=== PATIENT | male | born 2005 | race Caucasian/White ===

== ENCOUNTER 2024-02-25 11:16 | Emergency (ER) | payer OTHER, SELFPAY ==
[2024-02-25] MEDS ORDERED: KETOROLAC 30 MG/ML INJ ONE (13:20)
--- NOTE | 2024-02-25 13:47 | RAD REPORT ---
EXAM: Knee Left 3 View INDICATION: PAIN COMPARISON: None FINDINGS: No acute fracture. No significant knee effusion. No significant focal degenerative changes. Other: n/a IMPRESSION: No evidence of acute osseous abnormality involving the imaged knee.
--- NOTE | 2024-02-25 13:51 | ER ---
Nurse's Notes [facility] Name: Mehrdad Gandhi Age: 18 yrs Sex: Male : 2005 Arrival Date: 02/25/2024 Time: 11:16 Bed IW8 Private MD: Diagnosis: Pain in left knee Presentation: 02/24 11:36 Chief complaint: Patient states: injured left knee 6 mos ago, it got better. Two weeks tm6 ago started to hurt again. Coronavirus screen: Client denies travel out of the [place] in the last 14 days. Ebola Screen: Patient negative for fever greater than or equal to 101.5 degrees Fahrenheit, and additional compatible Ebola Virus Disease symptoms Patient denies exposure to infectious person. Patient denies travel to an Ebola-affected area in the 21 days before illness onset. No symptoms or risks identified at this time. Risk Assessment: Do you want to hurt yourself or someone else? Patient reports no desire to harm self or others. Onset of symptoms was February 11, 2024. 11:36 Method Of Arrival: Wheelchair tm6 11:36 Acuity: JULIAN 4 tm6 11:39 Initial Sepsis Screen: Does the patient meet any 2 criteria? No. Patient's initial tm6 sepsis screen is negative. Does the patient have a suspected source of infection? No. Patient's initial sepsis screen is negative. Triage Assessment: 11:38 General: Appears in no apparent distress. Behavior is calm, cooperative. Pain: tm6 Complains of pain in left knee Pain currently is 9 out of 10 on a pain scale. EENT: No signs and/or symptoms were reported regarding the EENT system. Neuro: Level of Consciousness is awake, alert, obeys commands, Oriented to person, place, time, situation. Cardiovascular: Patient's skin is warm and dry. Respiratory: Airway is patent Respiratory effort is even, unlabored, Respiratory pattern is regular, symmetrical. GI: No signs and/or symptoms were reported involving the gastrointestinal system. Abdomen is round. : No signs and/or symptoms were reported regarding the genitourinary system. Derm: No signs and/or symptoms reported regarding the dermatologic system. Musculoskeletal: Reports pain in left knee since x2 weeks. Pain is 9 out of 10 on a pain scale. Historical: - Allergies: 11:37 No Known Allergies; tm6 - PMHx: 11:37 None; tm6 - PSHx: 11:37 None; tm6 - Immunization history:: Flu vaccine is not up to date. - Infectious Disease History:: Denies. - Social history:: Smoking status: Reported history of juuling and/or vaping. Screenin:33 [facility] ED Fall Risk Assessment (Adult) History of falling in the last 3 months, tm6 including since admission No falls in past 3 months (0 pts) Confusion or Disorientation No (0 pts) Intoxicated or Sedated No (0 pts) Impaired Gait No (0 pts) Mobility Assist Device Used No (0 pt) Altered Elimination No (0 pt) Score/Fall Risk Level 0 - 2 = Low Risk Oriented to surroundings, Maintained a safe environment, Educated pt \T\ family on fall prevention, incl call for assistance when getting out of bed. Abuse screen: Denies threats or abuse. Denies injuries from another. Nutritional screening: No deficits noted. Tuberculosis screening: No symptoms or risk factors identified. Assessment: 13:33 Reassessment: see triage assessment. tm6 Vital Signs: 11:37 Resp 17; Temp 98.7(O); Weight 154.22 kg; Height 5 ft. 8 in. ; Pain 9/10; tm6 11:38 BP 162 / 113; Pulse 79; Pulse Ox 97% on R/A; MAP 128 mmHg; tm6 11:39 Pain 9/10; tm6 14:05 BP 158 / 110; Pulse 80; Resp 17; Temp 98.7; Pulse Ox 98% ; Pain 2/10; tm6 11:37 Body Mass Index 51.70 (154.22 kg, 172.72 cm) - Percentile 99.9 % tm6 11:37 Pain Scale: Adult tm6 11:39 Pain Scale: Adult tm6 14:05 Pain Scale: Adult tm6 ED Course: 11:19 Patient arrived in ED. im 11:20 Dorothy Leigh FNP-C is PHCP. kb 11:20 Isra Carlton MD is Attending Physician. kb 11:37 Triage completed. tm6 11:39 Arm band placed on right wrist. tm6 13:18 Randy Samuel, KANA is Primary Nurse. tm6 13:33 Patient has correct armband on for positive identification. Provided Education on: tm6 crutch training. 13:33 Crutch training done. Willis wrap to left knee. tm6 13:44 Knee Left 3 View XRAY In Process Unspecified. EDMS 14:06 No provider procedures requiring assistance completed. Patient did not have IV access tm6 during this emergency room visit. Administered Medications: 13:33 Drug: Ketorolac IM 30 mg IM once Route: IM; Site: right deltoid; tm6 14:06 Follow up: Response: No adverse reaction; Pain is decreased tm6 Medication: 13:33 VIS not applicable for this client. tm6 Outcome: 13:51 Discharge ordered by MD. wills 14:06 Discharged to home with crutches, with family, tm6 14:06 Condition: stable 14:06 Discharge instructions given to patient, family, Instructed on discharge instructions, follow up and referral plans. medication usage, crutch walking, Demonstrated understanding of instructions, follow-up care, medications, crutch walking, Prescriptions given X 1, 14:07 Patient left the ED. tm6 Signatures: Dispatcher [employer] Dorothy Varma FNP-C FNP-Barb Ness Tawney, KANA RN tm6
--- NOTE | 2024-02-25 13:51 | EDPHYS ---
Physician Documentation [facility] Name: Mehrdad Gandhi Age: 18 yrs Sex: Male : 2005 Arrival Date: 02/25/2024 Time: 11:16 Bed IW8 Private MD: ED Physician Isra Carlton HPI: 02/24 11:23 This 18 yrs old Male presents to ER via Unassigned with complaints of Knee Pain - Left. kb 11:23 Pt is a 18 year old male who presents for left knee pain that started 6-7 months ago kb and has progressively gotten worse. 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 Denies injury or trauma. . Historical: - Allergies: 11:37 No Known Allergies; tm6 - PMHx: 11:37 None; tm6 - PSHx: 11:37 None; tm6 - Immunization history:: Flu vaccine is not up to date. - Infectious Disease History:: Denies. - Social history:: Smoking status: Reported history of juuling and/or vaping. ROS: 11:24 Constitutional: As per HPI kb Exam: 11:24 Constitutional: This is a well developed, well nourished patient who is awake, alert, kb and in no acute distress. Head/Face: Normocephalic, atraumatic. ENT: Moist Mucous membranes Cardiovascular: Regular rate Respiratory: Respirations even and unlabored. No increased work of breathing. Talking in full sentences Skin: Warm, dry with normal turgor. Normal color. Neuro: Awake and alert, GCS 15, oriented to person, place, time, and situation. 11:24 Musculoskeletal/extremity: Extremities: grossly normal except: noted in the left knee: pain, tenderness, ROM: limited active range of motion due to pain, Circulation is intact in all extremities. Sensation intact. Vital Signs: 11:37 Resp 17; Temp 98.7(O); Weight 154.22 kg; Height 5 ft. 8 in. ; Pain 9/10; tm6 11:38 BP 162 / 113; Pulse 79; Pulse Ox 97% on R/A; MAP 128 mmHg; tm6 11:39 Pain 9/10; tm6 14:05 BP 158 / 110; Pulse 80; Resp 17; Temp 98.7; Pulse Ox 98% ; Pain 2/10; tm6 11:37 Body Mass Index 51.70 (154.22 kg, 172.72 cm) - Percentile 99.9 % tm6 11:37 Pain Scale: Adult tm6 11:39 Pain Scale: Adult tm6 14:05 Pain Scale: Adult tm6 MDM: 11:20 Medical Screening Exam initiated kb 13:51 Differential diagnosis: strain, sprain, fracture. Data reviewed: vital signs, nurses kb notes. Historians other than the Patient: Parent: mother. Counseling: I had a detailed discussion with the patient and/or guardian regarding the historical points, exam findings, and any diagnostic results supporting the discharge/admit diagnosis, radiology results, the need for outpatient follow up, a orthopedic surgeon, to return to the emergency department if symptoms worsen or persist or if there are any questions or concerns that arise at home. 02/24 11:26 Order name: Knee Left 3 View XRAY; Complete Time: 13:50 kb 02/24 11:26 Order name: Willis Wrap; Complete Time: 13:33 kb 02/24 11:26 Order name: Crutches; Complete Time: 13:33 kb Administered Medications: 13:33 Drug: Ketorolac IM 30 mg IM once Route: IM; Site: right deltoid; tm6 14:06 Follow up: Response: No adverse reaction; Pain is decreased tm6 Disposition Summary: 02/25/24 13:51 Discharge Ordered Notes: Location: Home kb Condition: Stable kb Diagnosis - Pain in left knee kb Followup: kb - With: Emergency Department - When: As needed - Reason: Worsening of condition Followup: kb - With: Private Physician - When: 2 - 3 days - Reason: Recheck today's complaints, Continuance of care, Re-evaluation by your physician Discharge Instructions: - Discharge Summary Sheet kb - Knee Sprain, Adult, [id number] kb - Acute Knee Pain, Adult, [id number] kb Forms: - Medication Reconciliation Form kb - Antibiotic Education kb - Prescription Opioid Use kb - Patient Portal Instructions kb - Leadership Thank You Letter kb Prescriptions: - Diclofenac Sodium 75 mg Oral tablet, delayed release (enteric coated) - take 1 tablet ORAL route 2 times per day As needed; 30 tablet; Refills: 0, kb Product Selection Permitted Signatures: Dispatcher [employer] EDDorothy Sweeney, CARTON STAMPER-C CARTON STAMPER-Ckb Randy Samuel, RN RN tm6
== END 2024-02-25 14:07 | disposition home or self-care (01) ==
LOC: ER 11:16
DX: M25.562 Pain in left knee (principal)
CPT/HCPCS: 96372; 99284